=== PATIENT | male | born 1965 | race Caucasian/White ===

== ENCOUNTER 2024-11-07 13:09 | Emergency (ER) | payer BC, OTHER ==
[~2024-11-07] VITALS: Ht 182.9 cm; Wt 84.0 kg
--- NOTE | 2024-11-07 13:23 | ED.PDOC ---
Back pain HPI HPI Comments 59 year old male MALACHI presents to the ED with chief complaint of back pain. Patient reports that he had been walking about an hour ago when all of a sudden his lower back began to hurt with associated bilateral upper extremity spasms. Patient relays that he has history of lumbar fusion in 2022. Patient denies any chest pain, SOB, dizziness, numbness, weakness, headache, or incontinence. Time Seen by MD: 13:20 Reviewed Notes: Nurses Notes, Pourer Notes, Medications, Allergies Information Source: Patient, Emergency Med Personnel Mode of Arrival: EMS Timing: Hours Duration: Since onset Location of Back pain: (B) Lower back Severity: Moderate Prehospital treatment: None Quality: Aching Onset: Spontaneous Circumstance: Other (Walking) History of: Chronic Back Pain Past Medical History PAST MEDICAL HISTORY: HTN, Liver Surgical History (Other): Lumbar fusion, right wrist surgery Family History Family History: Reviewed,noncontributory to illness Social History Smoker: Non-Smoker Alcohol: Denies ETOH Use Drugs: Denies Drug Use Lives In: Home Constitutional: denies: chills, diaphoresis, fatigue, fever, malaise, sweats, weakness, others EENTM: denies: blurred vision, double vision, ear bleeding, ear discharge, ear drainage, ear pain, ear ringing, eye pain, eye redness, hearing loss, mouth pain, mouth swelling, nasal discharge, nose bleeding, nose congestion, nose pain, photophobia, tearing, throat pain, throat swelling, voice changes, others Respiratory: denies: cough, hemoptysis, orthopnea, SOB at rest, shortness of breath, SOB with excertion, stridor, wheezing, others Cardiovascular: denies: chest pain, dizzy spells, diaphoresis, Dyspnea on exertion, edema, irregular heart beat, left arm pain, lightheadedness, palpitations, PND, syncope, others Gastrointestinal: denies: abdomen distended, abdominal pain, blood streaked bowels, constipated, diarrhea, dysphagia, difficulty swallowing, hematemesis, melena, nausea, poor appetite, poor fluid intake, rectal bleeding, rectal pain, vomiting, others Genitourinary: denies: burning, dysuria, flank pain, frequency, hematuria, incontinence, penile discharge, penile sore, pain, testicle pain, testicle swelling, urgency, others Neurological: denies: dizziness, fainting, headache, left sided numbness, left sided weakness, numbness, paresthesia, pre-existing deficit, right sided numbness, right sided weakness, seizure, speech problems, tingling, tremors, weakness, others Musculoskeletal: reports: back pain, others (Bilateral arm spasms); denies: gout, joint pain, joint swelling, muscle pain, muscle stiffness, neck pain Integumetry: denies: bruises, change in color, change in hair/nails, dryness, laceration, lesions, lumps, rash, wounds, others Allergic/Immunocompromised: denies: Difficulty Healing, Frequent Infections, Hives, Itching, others Hematologic/Lymphatic: denies: anemia, blood clots, easy bleeding, easy bruising, swollen glands, others Endocrine: denies: excessive hunger, excessive sweating, excessive thirst, excessive urination, flushing, intolerance to cold, intolerance to heat, unexplained weight gain, unexplained weight loss, others Psychiatric: denies: anxiety, bipolar disorder, depression, hopeless, panic disorder, schizophrenia, sleepless, suicidal, others All Other Systems: Reviewed and Negative Physical Exam General Appearance: Moderate Distress, Normal HEENT: Normal ENT Inspection, PERRL/EOMI Neck: Full Range of Motion, Non-Tender, Normal, Normal Inspection Respiratory: Chest Non-Tender, Lungs Clear, No Accessory Muscle Use, No Respiratory Distress, Normal Breath Sounds Cardiovascular: No Edema, No JVD, No Murmur, No Gallop, Normal Peripheral Pulses, Regular Rate/Rhythm Breast Exam: Deferred Gastrointestinal: No Organomegaly, Non Tender, No Pulsatile Mass, Normal Bowel Sounds, Soft Genitalia: Deferred Pelvic: Deferred Rectal: Deferred Extremities: No calf tenderness, Normal capillary refill, Normal inspection, Normal range of motion, Non-tender, No pedal edema Musculoskeletal : Apperance: Normal Neurologic: Alert, vocational services specialist II-XII nml as Tested, No Motor Deficits, Normal Affect, Normal Mood, No Sensory Deficits Cerebellar Function: NOT DONE Reflexes: NOT DONE Skin: Dry, Normal Color, Warm Peripheral Pulses: 3+ Radial (R), 3+ Radial (L) Lymphatic: No Adenopathy Was a procedure done? Was a procedure done?: No Back Pain Differential Dx Differential Diagnosis: Musculoskeletal Pain, Urinary Tract Infection, Urolithiasis X-Ray, Labs, Meds, VS Patient alert. Complaining of back pain. Vitals stable. Answering questions. He does have chronic back pain. He did have surgery on his lumbar spine. Was given Dilaudid. Was given Zofran. Explained to the patient. Continue monitoring. Time of 1ST Reevaluation: 14:20 Reevaluation 1ST: Unchanged Patient Education/Counseling: Diagnosis, Treatment Family Education/Counseling: No Family Present Additional Information The following tests were ordered, and results were reviewed by me: Additional Information was gathered from interviewing the following independent historians: I reviewed and agreed with the following test results read by other providers: I discussed treatment and results with medical personnel and: Patient Comprehensive systems review obtained and negative except for what is stated in the HPI. Departure 1 Departure Time of Disposition: 13:51 Impression: Primary Impression: Chronic pain syndrome Disposition: ADMITTED INPATIENT Admit to: Med Surg Condition: Guarded Critical Care Note Critical Care Time?: No Stability Stability form required: No Heart Score Heart Score: Heart Score Response (Comments) Value History N/A 0 EKG N/A 0 Age N/A 0 Risk Factors N/A 0 Troponin N/A 0 Total 0 I personally scribed for ALEX CHARLES MD ([email or web address]) on 11/07/24 at 13:23. Electronically submitted by John Montelongo ([email or web address]). ALEX CHARLES MD Nov 07, 2024 13:23
[2024-11-07] MEDS: ONDANSETRON HCL 4 MG/2 ML VIAL IV ONE (14:35)
[2024-11-07] MEDS: HYDROmorphone HCL 2 MG/ML VL/or syr IV ONE (14:36)
--- NOTE | 2024-11-07 15:22 | DVH ---
INDICATION: degen TECHNIQUE: Frontal and lateral views of the lumbar spine were obtained. COMPARISON: None FINDINGS: Postsurgical changes at L4-L5 through L5-S1 with intervertebral disc spacers.. There are no fractures or subluxations. Vertebral body heights and disc spaces are well maintained. Paravertebral soft tissues are unremarkable. IMPRESSION: 1. Of the visualized spine, there is no evidence for fracture or subluxation.
--- NOTE | 2024-11-07 15:25 | DVH ---
INDICATION: Pain COMPARISON: None TECHNIQUE:3 views of the thoracic spine were obtained. FINDINGS: The thoracic vertebral alignment is normal. The intervertebral disc spaces are well-maintained. No significant facet arthropathy is noted. No acute fracture, vertebral compression deformity or aggressive osseous lesions. The imaged thorax and abdomen are grossly unremarkable. IMPRESSION: No acute fracture.
[2024-11-07 16:12] VITALS: BP 128/76; PULSE 89; RESP 16; TEMP 98.7; O2SAT 97
== END 2024-11-07 16:14 | disposition home or self-care (01) ==
LOC: EDBD 13:09 → ER 13:09
DX: G89.4 Chronic pain syndrome (principal); I10 Essential (primary) hypertension; Z98.890 Other specified postprocedural states
CPT/HCPCS: 72070; 72100; 96374; 96375; 99284; J1171; J2405